=== PATIENT | female | born 1980 | race Caucasian/White ===

== ENCOUNTER → 2017-11-18 | Day surgery (SDC) | payer OTHER ==
[~2017-11-18] MED LIST: HYDROCODONE/ACE1 TA1 PO; PROAIR HFA8.5 GM INH
[2017-11-18 09:47] LABS: ABSOLUTE BASOPHIL COUNT 0 /CUMM (0.0-0.2); ABSOLUTE EOSINOPHIL COUNT 0.3 /CUMM (0.0-0.7); ABSOLUTE GRANULOCYTE CT 3.5 /CUMM (1.4-6.5); ABSOLUTE LYMPH COUNT 2.5 /CUMM (1.2-3.4); ABSOLUTE MONOCYTE COUNT 0.6 /CUMM (0.10-0.60); BASOPHIL % 0.7 % (0.0-2.0); EOSINOPHIL % 4.7 % (0-5); GRANULOCYTE % 50.5 % (42.2-75.2); HEMATOCRIT 38.8 % (37-47); MEAN CORPUSCULAR HGB 30.4 PG (27.0-31.0); MEAN CORPUSCULAR HGB CONC 33.7 G/DL (33.0-37.0); MEAN CORPUSCULAR VOLUME 90.1 FL (81.0-99.0); MEAN PLATELET VOLUME 8.4 FL (7.4-10.4); PLATELET COUNT 349 /CUMM (130-400); RBC DISTRIBUTION WIDTH 12.7 % (11.5-14.5); RED BLOOD CELL CT 4.31 /CUMM (4.20-5.40)
--- NOTE | 2017-11-18 12:39 | Operative Report ---
Operative/Inv Procedure Report Surgery Date: 11/18/17 Name of Procedure: laser vaporization of the cervical transformation zone Pre-Operative Diagnosis: MARCUS-2 Post-Operative Diagnosis: Same Estimated Blood Loss: scant Surgeon/Bibliographic Services Specialist: Mckenzie GR,Riley Kearney Anesthesia: laryngeal mask airway Specimens: Cervical biopsy 6:00 Complications: None Condition: Good Operative Indication: MARCUS-2 Operative/Procedure Note Note: After the induction of anesthesia the patient was placed in the dorsal supine position in high stirrups. The patient was draped in the usual sterile fashion and wet towel drapes were placed over the sterile drapes, appropriate eye protection was instituted. The CO2 laser was connected to the microscope cervix was prepped with Lugol's solution. The cervix was circumferentially infiltrated with 5 mL of Nesacaine with epinephrine. A cercical pre-op biopsey was taken at 6 oclock. The transformation zone was vaporized to a depth of 6 mm. Hemostasis was achieved with Monsel solution. Patient was awakened and moved to recovery room in good condition, there were no adventitious zambrano. Findings: Normal anatomy Discharge Disposition: PACU
== END ==
LOC: STS 01:38
PROVIDERS: Obstetrics & Gynecology
DX: N87.0 Mild cervical dysplasia (principal); A63.0 Anogenital (venereal) warts; J45.909 Unspecified asthma, uncomplicated
CPT/HCPCS: 36415; 81025; 88305; J0131; J2250